=== PATIENT | male | born 1985 | race Caucasian/White ===

== ENCOUNTER 2020-02-01 11:57 | Emergency (ER) | payer OTHER ==
[~2020-02-01] VITALS: Ht 185.4 cm; Wt 108.9 kg
[~2020-02-01 11:57] MED LIST: ALEVE220 MG PO; DULOXETINE HCL60 MG PO; GABAPENTIN300 MG PO; ISENTRESS400 MG PO; METHYLPHENIDATE36 MG PO; MORPHINE SULFAT15 M1 PO; NAPROXEN500 MG PO; NORCO 5-325 TA1 EACH PO; PAROXETINE HCL20 MG PO; PHENDIMETRAZIN105 MG PO; TIZANIDINE HCL4 M1 PO; TRAMADOL HCL50 MG; TRAMADOL HCL50 MG PO; TRAZODONE HCL100 MG PO; TRUVADA 200 MG1 EACH PO; XANAX0.25 MG PO; ZANAFLEX4 MG PO; ZOLPIDEM TARTRA10 MG PO
[2020-02-01] MEDS ORDERED: PREDNISONE20 MG PO (12:14)
[2020-02-01] MEDS ORDERED: CIPROFLOXACIN500 MG PO (12:14)
[2020-02-01] MEDS ORDERED: VALACYCLOVIR1000 MG PO (12:14)
[2020-02-01] MEDS ORDERED: NEURONTIN100 MG PO (12:35)
== END 2020-02-01 12:56 | disposition home or self-care (01) ==
LOC: ED 11:57
DX: B02.21 Postherpetic geniculate ganglionitis (principal); F90.9 Attention-deficit hyperactivity disorder, unspecified type; J45.909 Unspecified asthma, uncomplicated; Z79.899 Other long term (current) drug therapy; Z79.52 Long term (current) use of systemic steroids
CPT/HCPCS: 99282

== ENCOUNTER 2024-02-08 14:38 | Emergency (ER) | payer OTHER ==
[~2024-02-08] VITALS: Ht 185.4 cm; Wt 111.4 kg
[~2024-02-08 14:38] MED LIST changes: +CIPROFLOXACIN500 MG PO; +NEURONTIN100 MG PO; +PREDNISONE20 MG PO; +VALACYCLOVIR1000 MG PO
[2024-02-08] MEDS ORDERED: DIPHTH,PERTUSS(ACELL),TET VAC 0.5 ML SYRINGE IM ONE (16:15)
[2024-02-08 17:47] VITALS: BP 148/96
== END 2024-02-08 17:47 | disposition home or self-care (01) ==
LOC: ED 14:38
DX: S61.216A Laceration without foreign body of right little finger without damage to nail, initial encounter (principal); W25.XXXA Contact with sharp glass, initial encounter; J45.909 Unspecified asthma, uncomplicated; Z23 Encounter for immunization
CPT/HCPCS: 12001; 90471; 90715; 99282-25

== ENCOUNTER 2024-09-15 13:38 | Emergency (ER) | payer OTHER ==
[~2024-09-15] VITALS: Ht 185.4 cm; Wt 114.6 kg
[2024-09-15 15:40] VITALS: BP 138/64
== END 2024-09-15 15:40 | disposition home or self-care (01) ==
LOC: ED 13:38
DX: S16.1XXA Strain of muscle, fascia and tendon at neck level, initial encounter (principal); J45.909 Unspecified asthma, uncomplicated; V89.2XXA Person injured in unspecified motor-vehicle accident, traffic, initial encounter
CPT/HCPCS: 99283